=== PATIENT | male | born 1970 | race Caucasian/White ===

== ENCOUNTER 2018-11-21 14:01 | Emergency (ER) | payer SELFPAY ==
[~2018-11-21] VITALS: Ht 180.3 cm; Wt 95.3 kg
[2018-11-21] MEDS ORDERED: IV NORMAL SALINE 1000ML BAG 1,000 ML IV ONE (14:30)
[2018-11-21] MEDS ORDERED: cloNIDine HCL 0.1 MG TABLET PO ONE (14:30)
[2018-11-21 14:47] LABS: BASO # 0.1 x10^3/uL (0.0-0.2); BASO % 1 % (0-3); EOS # 0.1 x10^3/uL (0.0-0.7); EOS % 2 % (0-3); HEMATOCRIT 43.3 % (39.0-53.0); HEMOGLOBIN 14.6 g/dL (13.0-17.5); LYMPH # 1.7 x10^3/uL (1.0-4.8); LYMPH % 25 % (24-48); MEAN CORPUSCULAR HEMOGLOBIN 30 pg (25-35); MEAN CORPUSCULAR HGB CONC 34 g/dL (31-37); MEAN CORPUSCULAR VOLUME 88 fL (79-100); MONO # 0.4 x10^3/uL (0.0-1.1); MONO % 6 % (0-9); NEUT # 4.4 x10^3uL (1.8-7.7); NEUT % 67 % (31-73); PLATELET COUNT 283 x10^3/uL (140-400); RED BLOOD COUNT 4.94 x10^6/uL (4.30-5.70); RED CELL DISTRIBUTION WIDTH 12.6 % (11.5-14.5); WHITE BLOOD COUNT 6.6 x10^3/uL (4.0-11.0)
[2018-11-21 14:57] LABS: CALCIUM 8.7 mg/dL (8.5-10.1); CREATININE 0.8 mg/dL (0.7-1.3); GFR 102.3; POTASSIUM 3.7 mmol/L (3.5-5.1)
[2018-11-21] MEDS ORDERED: ACETAMINOPHEN 500 MG TABLET PO ONE (15:00)
[2018-11-21 15:04] LABS: ALBUMIN 3.9 g/dL (3.4-5.0); ALBUMIN/GLOBULIN RATIO 1.2 (1.0-1.7); TOTAL BILIRUBIN 0.6 mg/dL (0.2-1.0); TOTAL PROTEIN 7.1 g/dL (6.4-8.2)
--- NOTE | 2018-11-21 15:11 | RAD ---
CT HEAD INDICATION: HEADACHE SINCE LAST NIGHT. H/O STROKE. NO PREVIOUS COMPARISON: None Available. Exposure: One or more of the following individualized dose reduction techniques were utilized for this examination: 1. Automated exposure control 2. Adjustment of the mA and/or kV according to patient size 3. Use of iterative reconstruction technique TECHNIQUE: 5 mm contiguous axial images were obtained from the skull base to the vertex in both bone and soft tissue algorithm. FINDINGS: Focus of hypodensity identified in the right basal ganglia likely old infarct. No evidence of acute intracranial hemorrhage. No extra-axial fluid collections. No mass effect or midline shift. Ventricular size is appropriate. Basal cisterns are patent. No fractures identified.Horan-white differentiation is preserved.Globes and orbits are within normal limits. Paranasal sinuses and mastoid air cells are clear. IMPRESSION: 1. No acute intracranial findings. 2. Small hypodensity identified in the right basal ganglia likely old infarct. Electronically signed by: Rolando Holley MD (11/21/2018 3:08 PM) [facility]
[2018-11-21] MEDS ORDERED: diphenhydrAMINE 50 MG/ML VIAL IVP ONE (15:15)
[2018-11-21] MEDS ORDERED: KETOROLAC 30 MG/ML VIAL. IV ONE ×2 (15:15→15:30)
[2018-11-21] MEDS ORDERED: METOCLOPRAMIDE HCL 10 MG/2 ML VIAL. IV ONE (15:15)
[2018-11-21 16:36] LABS: BILIRUBIN,URINE NEGATIVE (NEG); CLARITY,URINE CLEAR; COLOR,URINE YELLOW; NITRITE,URINE NEGATIVE (NEG); PH,URINE 6.5; PROTEIN,URINE NEGATIVE (NEG-TRACE)
[2018-11-21 16:40] LABS: BACTERIA,URINE 0 /HPF (0-FEW)
[2018-11-21 16:41] LABS: RBC,URINE OCC /HPF (0-2); WBC,URINE OCC /HPF (0-4)
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
[2018-11-21 17:05] VITALS: BP 165/88
--- NOTE | 2018-11-22 08:06 | EKG ---
[facility] [address] [place] [address] Test Date: 2018-11-21 Test Time: 14:08:12 Pat Name: JULIANNE YEAGER Department: Room: Gender: M Make Up Artist: : 1970 Requested By: STUART ANGUIANO Order Number: [id number] Reading MD: Clay Ndiaye MD Measurements Intervals [place] Rate: 79 P: 24 PA: 140 QRS: 28 QRSD: 74 T: 36 QT: 376 QTc: 432 Interpretive Statements SINUS RHYTHM Electronically Signed On 11-22-2018 10:58:08 [employer] by Clay Ndiaye MD
== END 2018-11-21 17:14 | disposition home or self-care (01) ==
LOC: ER 14:01
DX: I10 Essential (primary) hypertension (principal); R51 Headache; F17.200 Nicotine dependence, unspecified, uncomplicated; Z96.649 Presence of unspecified artificial hip joint; Z86.73 Personal history of transient ischemic attack (TIA), and cerebral infarction without residual deficits; Z88.8 Allergy status to other drugs, medicaments and biological substances
CPT/HCPCS: 36415; 70450; 80053; 81001; 85025; 93005; 96374; 96375; 99284; J1200; J1885; J2765; J7030; 96361; 99285-25